=== PATIENT | female | born 1995 | race African-American/Black ===

== ENCOUNTER 2020-04-19 11:41 | Emergency (ER) | payer MEDICAID, SELFPAY ==
[~2020-04-19] VITALS: Ht 160 cm; Wt 77.3 kg
--- NOTE | 2020-04-19 11:58 | NUR ---
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
--- NOTE | 2020-04-19 12:12 | NUR ---
"I HAD A BABY ABOUT A YEAR AGO AND EVER SINCE GIVING I HAVE WEIRD ABNORMAL BLEEDING SINCE THEN. IT'S JUST VERY INCONSISTENT. DECEMBER AND JANUARY I BLED FOR A STRIAGHT MONTH THEN IN FEBRUARY I SPOTTED RANDOMLY". ALSO HAS CONCERNS OF UTERINE FIBROID. A0. PT RESTING ON GURNEY. NADN. VSS. WARM BLANKET PROVIDED.
[2020-04-19 12:54] LABS: BASOPHILS % (AUTO) 0 % (0-1); EOSINOPHILS % (AUTO) 2 % (1-7); LYMPHOCYTES % (AUTO) 29 % (22-44); MEAN CORPUSCULAR HEMOGLOBIN 27.5 pg (27.0-34.8); MEAN CORPUSCULAR HGB CONC 33.3 g/dL (32.4-35.8); MEAN PLATELET VOLUME 8.8 fL (7.4-10.4); MONOCYTES % (AUTO) 10 % (2-9); NEUTROPHILS % (AUTO) 59 % (42-75); PLATELET COUNT 260 x10^3/uL (130-400); RED CELL DISTRIBUTION WIDTH 13.5 % (9.6-15.2)
[2020-04-19 12:55] LABS: MICROSCOPIC AUTO
[2020-04-19 12:58] LABS: MD NO
[2020-04-19 12:59] LABS: ALBUMIN 3.5 g/dL (3.4-5.0); ANION GAP 7 mmol/L (5-15); CALCIUM 8.3 mg/dL (8.5-10.1); CHLORIDE 107 mmol/L (98-107); CREATININE 0.81 mg/dL (0.55-1.02)
--- NOTE | 2020-04-19 13:27 | NUR ---
PT RESTING ON GURNEY. NADN. LENTZ.
--- NOTE | 2020-04-19 13:39 | NUR ---
PT CHART REVIEWED AND PLACED FOR RECHECK.
--- NOTE | 2020-04-19 14:16 | NUR ---
PT RESTING ON GURNEY. NADN. LENTZ.
--- NOTE | 2020-04-19 14:54 | NUR ---
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
--- NOTE | 2020-04-19 14:56 | NUR ---
BREAK RN- VS UPDATED AND WNL. PT RESTING WITH NO COMPLAINTS. CALL BUTTON IN LAP.
[2020-04-19] MEDS ORDERED: LIDOCAINE-MPF 1%, 5ML ONE (15:26)
[2020-04-19] MEDS ORDERED: CEFTRIAXONE 250 MG ONE (15:26)
[2020-04-19] MEDS ORDERED: AZITHROMYCIN 500 MG TABLET ONE (15:26)
[2020-04-19] MEDS ORDERED: CEFTRIAXONE 250 MG IM ONE (15:30)
[2020-04-19] MEDS ORDERED: AZITHROMYCIN 500 MG TABLET PO ONE (15:30)
[2020-04-19 15:58] LABS: CLUE CELLS NONE SEEN (NONE SEEN); WET PREP WBCS MODERATE (FEW)
[2020-04-19 16:09] VITALS: BP 118/80
--- NOTE | 2020-04-19 16:09 | NUR ---
PT RESTING ON GURNEY. NADN. LENTZ.
== END 2020-04-19 17:13 | disposition home or self-care (01) ==
LOC: ED 15:01
DX: N30.00 Acute cystitis without hematuria (principal); N89.8 Other specified noninflammatory disorders of vagina
CPT/HCPCS: 36415; 76830; 80048; 81001; 82040; 84703; 85025; 87086; 87210; 87491; 87591; 87808; 96372; 99285; J0696